=== PATIENT | female | born 1985 | race Caucasian/White ===

== ENCOUNTER 2020-05-28 12:04 | Emergency (ER) | payer OTHER ==
[~2020-05-28] VITALS: Ht 157.5 cm; Wt 105.2 kg
[~2020-05-28 12:04] MED LIST: CYCL10TA45 PO; ONDA-42 SL; PROM25SU10 PR
--- NOTE | 2020-05-28 12:07 | ED General ---
General Stated Complaint: ALLERGIC REACTION Source of Information: Patient History of Present Illness Date Seen by Provider: May 28, 2020 Time Seen by Provider: 12:10 Initial Comments Patient is a 34 y/o female who presents to the ER today with allergic reaction. She began having symptoms last night. She reports her throat felt "scratchy" and like there was some swelling. She took some benadryl but felt it was difficult to swallow. She subsequently developed hives over the arms and torso overnight. This morning, she took some additional benadryl and went to the local urgent care. On arrival there, she was given an epipen injection and instructed to come to the ER. On arrival to the ER, her symptoms are much improved. No swelling of the oral pharynx. Hives have resolved. She had some swelling of the tongue and lips overnight which had already been improving prior to when she went to the urgent care. Although these sx are not present on arrival, she did take some pics with her cell phone which appear to show some angioedema. Allergies and Home Medications Allergies Uncoded Allergies: PAIN MEDS (Adverse Reaction, Unknown, NAUSEA, 08/07/14) Home Medications Cyclobenzaprine Hcl 10 Mg Tablet, 10 MG PO Q6H, (Reported) Loratadine 10 Mg Tablet, 10 MG PO DAILY Prescribed by: JEROMY FELIX on 05/28/20 1258 Ondansetron Hcl 4 Mg Tab, 4 MG SL Q4H FOR NAUSEA AND VOMITING Prescribed by: FRIDA KELLY on 08/07/14 1522 Prednisone 20 Mg Tab, 20 MG PO DAILY Take 3 tabs po in am x 3 days, then take 2 tabs x 3 days, then take 1 tab x 3 days, then take 1/2 tab daily until gone. Prescribed by: JEROMY FEILX on 05/28/20 1258 Promethazine Hcl 25 Mg Supp, 25 MG AR Q6H PRN for NAUSEA/VOMITING Prescribed by: FRIDA KELLY on 08/07/14 1522 Patient Home Medication List Home Medication List Reviewed: Yes Review of Systems Review of Systems Constitutional: no symptoms reported EENTM: see HPI Respiratory: no symptoms reported Cardiovascular: no symptoms reported Gastrointestinal: no symptoms reported Genitourinary: no symptoms reported : No Musculoskeletal: no symptoms reported Skin: see HPI All Other Systems Reviewed Negative Unless Noted: Yes Past [place]-U[place]t-Emfsbj Hx Past Medical History Section, Orthopedic Crohns Disease Physical Exam Vital Signs Vital Signs - First Documented 05/28/20 12:07 Temp 36.7 Pulse 91 Resp 14 B/P (MAP) 178/97 (124) Pulse Ox 100 O2 Delivery Room Air Capillary Refill : Height, Weight, BMI Height: 5'" Weight: 210lbs. oz. [id number]; BMI Method: General Appearance: No Apparent Distress, WD/WN HEENT: PERRL/EOMI, TMs Normal, Pharynx Normal Neck: Full Range of Motion Respiratory: Lungs Clear, Normal Breath Sounds Cardiovascular: Regular Rate, Rhythm Extremity: Normal Capillary Refill Neurologic/Psychiatric: Alert, Oriented x3 Skin: Normal Color, Warm/Dry Progress/Results/Core Measures Suspected Sepsis SIRS Temperature: Pulse: Respiratory Rate: Blood Pressure / Mean: Results/Orders My Orders Orders - JEROMY FELIX DO Ed Iv/Invasive Line Start (05/28/20 12:13) Famotidine Injection (Pepcid Injection) (05/28/20 12:15) Diphenhydramine Injection (Benadryl Inje (05/28/20 12:15) Methylprednisolone Sod Succ (Solu-Medrol (05/28/20 12:45) Medications Given in ED Current Medications Medications Dose Ordered Sig/Addie Route Start Time Stop Time Status Last Admin Dose Admin Diphenhydramine HCl 25 mg ONCE ONCE IVP 05/28/20 12:15 05/28/20 12:16 DC 05/28/20 12:31 25 MG Famotidine 20 mg ONCE ONCE IVP 05/28/20 12:15 05/28/20 12:16 DC 05/28/20 12:31 20 MG Methylprednisolone Sodium Succinate 125 mg ONCE ONCE IVP 05/28/20 12:45 05/28/20 12:46 DC 05/28/20 12:34 125 MG Vital Signs/I&O 05/28/20 12:07 Temp 36.7 Pulse 91 Resp 14 B/P (MAP) 178/97 (124) Pulse Ox 100 O2 Delivery Room Air Capillary Refill : Progress Note : Time: 12:07 Progress Note Patient is seen and examined. No s/s of acute allergic reaction on arrival to the ER. Normal physical exam with clear lungs, no difficulty breathing, no swelling of lips, tongue or posterior oral pharynx. Patient had been given epipen prior to arrival. Orders are placed to start IV, give pepcid, solumed rol, benadryl and we will observe her in the ER to ensure no return of allergy symptoms. 13:15: Continues to have no symptoms. Feeling 100% improved and requesting discharge home. Epipen Rx called in for patient from urgent care. She is discharged home with Rx for prednisone taper and claritin over next 10 days. Return precautions discussed and all of her questions are answered prior to d/c home. Patient is awake, alert, and ambulating with normal steady gait at the time of discharge. Departure Impression Primary Impression: Allergic reaction Disposition: HOME, SELF-CARE Condition: Improved Departure-Patient Inst. Referrals: NO,LOCAL PHYSICIAN (Family) Primary Care Physician Scripts Prednisone (Prednisone) 20 Mg Tab 20 MG PO DAILY, #20 TAB 0 Refills Take 3 tabs po in am x 3 days, then take 2 tabs x 3 days, then take 1 tab x 3 days, then take 1/2 tab daily until gone. Prov: JEROMY FELIX DO 05/28/20 Loratadine (Loratadine) 10 Mg Tablet 10 MG PO DAILY for 10 Days, TAB Prov: JEROMY FELIX DO 05/28/20 JEROMY FELIX DO May 28, 2020 12:07
[2020-05-28] MEDS ORDERED: FAMOTIDINE 20MG/2ML IV (PEPCID) IVP ONE (12:15)
[2020-05-28] MEDS ORDERED: methylPREDNISolone 125 MG (Solu-MEDROL) VIAL IM ONE (12:15)
[2020-05-28] MEDS ORDERED: diphenhydrAMINE 50 MG/ML INJ (BENADRYL) IVP ONE (12:15)
[2020-05-28] MEDS ORDERED: methylPREDNISolone 125 MG (Solu-MEDROL) VIAL IVP ONE (12:45)
[2020-05-28] MEDS ORDERED: PRD20T PO (12:58)
[2020-05-28] MEDS ORDERED: LORA10TA7 PO (12:58)
[2020-05-28 13:14] VITALS: BP 146/83
== END 2020-05-28 13:14 | disposition home or self-care (01) ==
LOC: EDUNIT# 12:04 → ER FS 12:06
DX: R09.89 Other specified symptoms and signs involving the circulatory and respiratory systems (principal); T45.0X5A Adverse effect of antiallergic and antiemetic drugs, initial encounter; Z88.6 Allergy status to analgesic agent; Z79.52 Long term (current) use of systemic steroids